=== PATIENT | male | born 1970 | race African-American/Black ===

== ENCOUNTER 2019-04-29 12:09 | Inpatient (IN) | payer MEDICAID ==
[~2019-04-29] VITALS: Ht 172.7 cm; Wt 73.9 kg
[2019-04-29] MEDS ORDERED: SODIUM CHLORIDE 0.9% 500 ML IV ONE (13:00)
[2019-04-29 13:11] LABS: BASOPHILS % 0.8 % (0.0-2.0); EOSINOPHILS % 1.2 % (0.0-5.0); HEMATOCRIT. 47.4 % (42.0-52.0); HEMOGLOBIN. 16.6 g/dL (14.0-18.0); LYMPHOCYTES % 26.3 % (20.0-50.0); MEAN CORPUSCULAR HEMOGLOBIN 31.4 pg (28.0-32.0); MEAN CORPUSCULAR VOLUME 89.8 fL (80.0-94.0); MEAN PLATELET VOLUME 7.9 fl (7.4-10.4); MONOCYTES % 11.5 % (2.0-8.0); NEUTROPHILS % 60.2 % (40.0-76.0); PLATELET 61 x1000/uL (130-400); RED BLOOD CELL COUNT 5.28 mill/uL (4.7-6.1); RED CELL DISTRIBUTION WIDTH 13.7 % (11.6-14.6)
[2019-04-29 13:22] LABS: CHLORIDE 96 mEq/L (98-107)
[2019-04-29] MEDS ORDERED: NITROGLYCERIN 0.4MG TABLET SL SL ONE (13:45)
[2019-04-29] MEDS ORDERED: FUROSEMIDE 40MG/4ML VIAL IVP ONE (13:45)
[2019-04-29] MEDS ORDERED: ASPIRIN 325MG TABLET PO ONE (13:45)
[2019-04-29] MEDS ORDERED: ENALAPRIL 2.5MG/2ML VIAL 2ML IV ONE (13:45)
[2019-04-29] MEDS ORDERED: LABETALOL HCL 200 MG in DEXT 5% WATER 60 ML IV PRN (13:45)
[2019-04-29] MEDS ORDERED: IPRATROPIUM/ALBUTEROL 0.5-3(2.5)MG/3ML NEB INH PRN (14:15)
[2019-04-29] MEDS ORDERED: DIPHENHYDRAMINE 50MG/ML VIAL IV PRN (14:15)
[2019-04-29] MEDS ORDERED: HYDROCODONE/ACETAMINOPHEN 5/325MG TABLET PO PRN (14:15)
[2019-04-29] MEDS ORDERED: MAGNESIUM/ALUMINUM HYDROXIDE/SIMETHICONE 30ML UDC PO PRN (14:15)
[2019-04-29] MEDS ORDERED: DOCUSATE SODIUM 100MG CAPSULE PO PRN (14:15)
[2019-04-29] MEDS ORDERED: MORPHINE SULFATE 2 MG/ML CPJ (NOT FOR IM USE) IV PRN (14:15)
[2019-04-29] MEDS ORDERED: GUAIFENESIN 200MG/10ML SUGAR FREE UDC PO PRN (14:15)
[2019-04-29] MEDS ORDERED: CLONIDINE 0.1MG TABLET PO PRN (14:30)
[2019-04-29] MEDS ORDERED: POTASSIUM CHLORIDE INJ 40 MEQ in DEXT 5% WATER 250 ML IV NR (14:30)
[2019-04-29] MEDS ORDERED: CLONIDINE 0.2MG TABLET PO ONE (14:30)
[2019-04-29] MEDS ORDERED: POTASSIUM CHLORIDE 20MEQ TABLET SR PO ONE (15:30)
[2019-04-29] MEDS: METOPROLOL TARTRATE 50MG TABLET PO SCH ×2 (15:34→23:03)
[2019-04-29] MEDS: DILTIAZEM HCL 90MG TABLET PO SCH ×2 (16:00→18:16)
[2019-04-29 18:00] VITALS: BP 144/110
[2019-04-29 18:01] VITALS: BP 144/110
[2019-04-29] MEDS ORDERED: SODIUM PHOS,M-BASIC-D-BASIC 15 MM in DEXT 5% WATER 245 ML IV SCH (20:00)
[2019-04-29] MEDS: HYDRALAZINE HCL 25MG TABLET PO SCH (21:31)
[2019-04-29 21:47] VITALS: BP 150/116
[2019-04-29 23:05] LABS: CREATINE KINASE MB FRACTION 2.5 ng/mL (0.5-3.6)
[2019-04-29 23:38] LABS: CLARITY URINE CLEAR (CLEAR); COLOR URINE YELLOW (YELLOW); KETONES URINE NEGATIVE (NEGATIVE); LEUKOCYTE ESTERASE URINE NEGATIVE (NEGATIVE); NITRITE URINE NEGATIVE (NEGATIVE); OCCULT BLOOD URINE 2+ (NEGATIVE); PH URINE 7.5 (4.5-8.0); PROTEIN URINE 3+ (NEGATIVE); SPECIFIC GRAVITY URINE 1.009 (1.005-1.030); UROBILINOGEN URINE 0.2 E.U./dL (0.2-1.0)
[2019-04-29 23:48] LABS: *AMPHETAMINES SCREEN URINE NEGATIVE (NEGATIVE); *BARBITURATES SCREEN URINE NEGATIVE (NEGATIVE)
[2019-04-29 23:49] LABS: *BENZODIAZEPINES SCREEN URINE NEGATIVE (NEGATIVE); *COCAINE SCREEN URINE NEGATIVE (NEGATIVE); CANNABINOID URINE SCREEN PRESUMTIVE POSITIVE (NEGATIVE); METHADONE URINE SCREEN NEGATIVE (NEGATIVE); OPIATES URINE SCREEN NEGATIVE (NEGATIVE); PHENCYCLIDINE URINE SCREEN NEGATIVE (NEGATIVE)
[2019-04-30] VITALS (8 sets, daily range): BP systolic 143–186; BP diastolic 108–136
[2019-04-30] MEDS: DILTIAZEM HCL 90MG TABLET PO SCH ×2 (00:43→05:29)
[2019-04-30] MEDS ORDERED: CLONIDINE 0.1MG TABLET PO PRN (02:30)
[2019-04-30] MEDS: HYDRALAZINE HCL 25MG TABLET PO SCH (05:29)
[2019-04-30 06:55] LABS: BASOPHILS % 0.4 % (0.0-2.0); EOSINOPHILS % 1.9 % (0.0-5.0); HEMATOCRIT. 42.6 % (42.0-52.0); HEMOGLOBIN. 14.9 g/dL (14.0-18.0); LYMPHOCYTES % 29.9 % (20.0-50.0); MEAN CORPUSCULAR HEMOGLOBIN 31.7 pg (28.0-32.0); MEAN CORPUSCULAR VOLUME 90.8 fL (80.0-94.0); MEAN PLATELET VOLUME 8.1 fl (7.4-10.4); MONOCYTES % 11.5 % (2.0-8.0); NEUTROPHILS % 56.3 % (40.0-76.0); PLATELET 53 x1000/uL (130-400); RED CELL DISTRIBUTION WIDTH 13.9 % (11.6-14.6)
[2019-04-30 08:01] LABS: CHLORIDE 96 mEq/L (98-107)
[2019-04-30 08:12] LABS: PHOSPHORUS 5.3 mg/dL (2.5-4.9)
[2019-04-30 08:13] LABS: CREATINE KINASE 249 IU/L (39-308); LDL CHOLESTEROL 100 mg/dL (5-100)
[2019-04-30 08:14] LABS: CREATINE KINASE MB FRACTION 2.2 ng/mL (0.5-3.6); HDL CHOLESTEROL 45 mg/dL (40-59)
[2019-04-30] MEDS: METOPROLOL TARTRATE 50MG TABLET PO SCH (10:53)
[2019-04-30] MEDS: DILTIAZEM HCL 120MG CAPSULE CD 24HR PO SCH ×2 (11:27→22:14)
[2019-04-30] MEDS: FUROSEMIDE 40MG TABLET PO SCH (11:27)
[2019-04-30] MEDS ORDERED: POTASSIUM CHLORIDE 20MEQ TABLET SR PO NR (15:00)
[2019-04-30 16:13] LABS: HEPATITIS B SURFACE ANTIGEN NEGATIVE
[2019-04-30 16:43] LABS: HEPATITIS A AB IGM NEGATIVE (NEGATIVE)
[2019-04-30] MEDS: ATORVASTATIN CALCIUM 20MG TABLET PO SCH (21:00)
[2019-04-30] MEDS: HYDRALAZINE HCL 50MG TABLET PO SCH (22:13)
[2019-04-30] MEDS: CARVEDILOL 12.5MG TABLET PO SCH (22:15)
[2019-05-01] VITALS: BP 126/92
[2019-05-01 04:00] VITALS: BP 131/95
[2019-05-01] MEDS: HYDRALAZINE HCL 50MG TABLET PO SCH (05:36)
[2019-05-01 06:47] LABS: BASOPHILS % 0.2 % (0.0-2.0); EOSINOPHILS % 0.8 % (0.0-5.0); HEMATOCRIT. 41.5 % (42.0-52.0); HEMOGLOBIN. 14.6 g/dL (14.0-18.0); LYMPHOCYTES % 21.3 % (20.0-50.0); MEAN CORPUSCULAR HEMOGLOBIN 31.8 pg (28.0-32.0); MEAN CORPUSCULAR VOLUME 90.3 fL (80.0-94.0); MEAN PLATELET VOLUME 8.9 fl (7.4-10.4); MONOCYTES % 7.4 % (2.0-8.0); NEUTROPHILS % 70.3 % (40.0-76.0); PLATELET 60 x1000/uL (130-400)
[2019-05-01 07:23] LABS: PHOSPHORUS 4.5 mg/dL (2.5-4.9)
[2019-05-01 08:00] VITALS: BP 149/100
[2019-05-01] MEDS: FUROSEMIDE 40MG TABLET PO SCH (09:01)
[2019-05-01] MEDS: DILTIAZEM HCL 120MG CAPSULE CD 24HR PO SCH ×2 (09:01→20:46)
[2019-05-01] MEDS: CARVEDILOL 12.5MG TABLET PO SCH ×2 (09:01→20:47)
[2019-05-01 12:00] VITALS: BP 136/103
[2019-05-01] MEDS ORDERED: ACET-2178 PO (15:50)
[2019-05-01 16:00] VITALS: BP 128/76
[2019-05-01 20:00] VITALS: BP 164/125
[2019-05-01] MEDS: HYDRALAZINE HCL 100MG TABLET PO SCH (20:46)
[2019-05-01] MEDS: ATORVASTATIN CALCIUM 20MG TABLET PO SCH (20:47)
[2019-05-02] VITALS: BP 116/85
[2019-05-02 04:00] VITALS: BP 132/95
[2019-05-02 04:09] LABS: HIV SCREEN 4G Non Reactive (Non Reactive)
[2019-05-02 08:00] VITALS: BP 136/99
[2019-05-02] MEDS: DILTIAZEM HCL 120MG CAPSULE CD 24HR PO SCH ×2 (08:19→21:24)
[2019-05-02] MEDS: CARVEDILOL 12.5MG TABLET PO SCH ×2 (08:19→21:24)
[2019-05-02] MEDS: FUROSEMIDE 40MG TABLET PO SCH (08:20)
[2019-05-02] MEDS: HYDRALAZINE HCL 100MG TABLET PO SCH ×2 (08:20→21:25)
[2019-05-02] MEDS: ONDANSETRON HCL 4MG/2ML INJ IV PRN (11:56)
[2019-05-02 12:00] VITALS: BP 113/74
[2019-05-02] MEDS ORDERED: ONDANSETRON HCL 4MG TABLET PO PRN (12:15)
[2019-05-02 16:00] VITALS: BP 151/99
[2019-05-02 16:04] LABS: BASOPHILS % 0.6 % (0.0-2.0); HEMATOCRIT. 41.6 % (42.0-52.0); HEMOGLOBIN. 14.5 g/dL (14.0-18.0); LYMPHOCYTES % 21.6 % (20.0-50.0); MEAN CORPUSCULAR HEMOGLOBIN 31.7 pg (28.0-32.0); MEAN CORPUSCULAR VOLUME 91.4 fL (80.0-94.0); MEAN PLATELET VOLUME 8.8 fl (7.4-10.4); MONOCYTES % 6.4 % (2.0-8.0); NEUTROPHILS % 70.4 % (40.0-76.0); PLATELET 97 x1000/uL (130-400); RED BLOOD CELL COUNT 4.56 mill/uL (4.7-6.1); RED CELL DISTRIBUTION WIDTH 13.9 % (11.6-14.6)
[2019-05-02 16:23] LABS: PHOSPHORUS 3.8 mg/dL (2.5-4.9)
[2019-05-02] MEDS: ACETAMINOPHEN 325MG TABLET PO PRN (16:30)
[2019-05-02] MEDS ORDERED: POTASSIUM CHLORIDE 20MEQ TABLET SR PO NR (17:30)
[2019-05-02 20:37] VITALS: BP 149/108
[2019-05-02] MEDS: ATORVASTATIN CALCIUM 20MG TABLET PO SCH (21:24)
[2019-05-03] VITALS: BP 118/79
[2019-05-03 04:00] VITALS: BP 140/97
[2019-05-03 06:10] LABS: PHOSPHORUS 4.3 mg/dL (2.5-4.9)
[2019-05-03 06:36] LABS: BASOPHILS % 0.4 % (0.0-2.0); EOSINOPHILS % 1.6 % (0.0-5.0); HEMATOCRIT. 39.4 % (42.0-52.0); LYMPHOCYTES % 26.5 % (20.0-50.0); MEAN CORPUSCULAR HEMOGLOBIN 32.2 pg (28.0-32.0); MEAN CORPUSCULAR VOLUME 90.3 fL (80.0-94.0); MEAN PLATELET VOLUME 8.5 fl (7.4-10.4); MONOCYTES % 10.4 % (2.0-8.0); NEUTROPHILS % 61.1 % (40.0-76.0); PLATELET 87 x1000/uL (130-400); RED BLOOD CELL COUNT 4.36 mill/uL (4.7-6.1); RED CELL DISTRIBUTION WIDTH 14.2 % (11.6-14.6)
[2019-05-03 08:00] VITALS: BP 152/112
[2019-05-03] MEDS: CARVEDILOL 12.5MG TABLET PO SCH (09:20)
[2019-05-03] MEDS: DILTIAZEM HCL 120MG CAPSULE CD 24HR PO SCH (09:21)
[2019-05-03] MEDS: HYDRALAZINE HCL 100MG TABLET PO SCH (09:21)
[2019-05-03] MEDS: FUROSEMIDE 40MG TABLET PO SCH (09:21)
[2019-05-03] MEDS ORDERED: CLONIDINE 0.1MG TABLET PO SCH (11:00)
[2019-05-03 11:09] VITALS: BP 152/112
[2019-05-03] MEDS: ACETAMINOPHEN 325MG TABLET PO PRN (11:32)
[2019-05-03] MEDS: ONDANSETRON HCL 4MG/2ML INJ IV PRN (11:32)
== END 2019-05-03 14:31 | disposition home or self-care (01) | DRG 194 ==
LOC: ER 12:09 → 6WST 14:13 → ENRESERV 16:04
PROVIDERS: ADMIT Internal Medicine; ATTEND Internal Medicine
DX: I13.0 Hypertensive heart and chronic kidney disease with heart failure and stage 1 through stage 4 chronic kidney disease, or unspecified chronic kidney disease (principal); D69.6 Thrombocytopenia, unspecified; N17.9 Acute kidney failure, unspecified; E87.1 Hypo-osmolality and hyponatremia; E83.39 Other disorders of phosphorus metabolism; N18.3 Chronic kidney disease, stage 3 (moderate); I42.9 Cardiomyopathy, unspecified; I50.9 Heart failure, unspecified; I16.0 Hypertensive urgency; E87.6 Hypokalemia; E78.5 Hyperlipidemia, unspecified; F12.90 Cannabis use, unspecified, uncomplicated; H53.8 Other visual disturbances; J06.9 Acute upper respiratory infection, unspecified; Z91.19 Patient's noncompliance with other medical treatment and regimen; Z86.73 Personal history of transient ischemic attack (TIA), and cerebral infarction without residual deficits; Z82.3 Family history of stroke; Z82.49 Family history of ischemic heart disease and other diseases of the circulatory system; Z87.891 Personal history of nicotine dependence
CPT/HCPCS: 36415; 71045; 76770; 80048; 80061; 80305; 82550; 82553; 83735; 83880; 84100; 84443; 84484; 86705; 86709; 86803; 87340; 87389; 93005; 93306; 93970; 96374; 96375; 99285; J1940; J2405; J3480; J3490; J7040; J7060; Q0162

== ENCOUNTER 2021-10-24 01:29 | Inpatient (IN) | payer MEDICAID, OTHER ==
[~2021-10-24] VITALS: Ht 172.7 cm; Wt 60.8 kg
[~2021-10-24 01:29] MED LIST: TOPUD PO
[2021-10-24] MEDS ORDERED: DIPHENHYDRAMINE 50MG/ML VIAL IV ONE (01:45)
[2021-10-24] MEDS ORDERED: FAMOTIDINE 20MG/2ML VIAL IV ONE (01:45)
[2021-10-24] MEDS ORDERED: DEXAMETHASONE 10 MG/ML VIAL IV ONE (01:45)
[2021-10-24 01:59] LABS: BASOPHILS % 1.4 % (0.0-2.0); HEMATOCRIT. 52.5 % (42.0-52.0); HEMOGLOBIN. 18.1 g/dL (14.0-18.0); MEAN CORPUSCULAR HEMOGLOBIN 31.4 pg (28.0-32.0); MEAN CORPUSCULAR VOLUME 90.9 fL (80.0-94.0); MEAN PLATELET VOLUME 8.3 fl (7.4-10.4); MONOCYTES % 9.6 % (2.0-8.0); PLATELET 185 x1000/uL (130-400); RED BLOOD CELL COUNT 5.77 mill/uL (4.7-6.1); RED CELL DISTRIBUTION WIDTH 14.1 % (11.6-14.6)
[2021-10-24 02:06] LABS: CHLORIDE 104 mEq/L (98-107)
[2021-10-24] MEDS ORDERED: LABETALOL 5MG/ML SYR 20 MG/4 ML SYRINGE IV ONE (02:15)
[2021-10-24] MEDS ORDERED: ONDANSETRON HCL 4MG/2ML INJ IV ONE (02:30)
[2021-10-24 03:50] LABS: CLARITY URINE CLEAR (CLEAR); COLOR URINE YELLOW (YELLOW); KETONES URINE NEGATIVE (NEGATIVE); LEUKOCYTE ESTERASE URINE TRACE (NEGATIVE); NITRITE URINE NEGATIVE (NEGATIVE); OCCULT BLOOD URINE NEGATIVE (NEGATIVE); PROTEIN URINE 3+ (NEGATIVE); SPECIFIC GRAVITY URINE 1.015 (1.005-1.030); UROBILINOGEN URINE 0.2 E.U./dL (0.2-1.0)
[2021-10-24] MEDS ORDERED: LABETALOL 5MG/ML SYR 20 MG/4 ML SYRINGE IV SCH (04:15)
[2021-10-24] MEDS ORDERED: LORAZEPAM 0.5MG TABLET PO PRN (08:00)
[2021-10-24] MEDS ORDERED: IPRATROPIUM/ALBUTEROL 0.5-3(2.5)MG/3ML NEB HHN PRN (08:00)
[2021-10-24] MEDS ORDERED: ONDANSETRON HCL 4MG/2ML INJ IV PRN (08:00)
[2021-10-24] MEDS ORDERED: DOCUSATE SODIUM 100MG CAPSULE PO PRN (08:00)
[2021-10-24] MEDS ORDERED: HYDROCODONE/ACETAMINOPHEN 5/325MG TABLET PO PRN (08:00)
[2021-10-24] MEDS ORDERED: ACETAMINOPHEN 325MG TABLET PO PRN ×2 (08:00)
[2021-10-24] MEDS: CLONIDINE 0.1MG TABLET PO PRN ×2 (08:14→19:52)
[2021-10-24] MEDS ORDERED: NALOXONE HCL 0.4MG/ML VIAL IV PRN (08:15)
[2021-10-24] MEDS: NIFEDIPINE XL 30MG TAB PO SCH ×3 (08:22→21:45)
[2021-10-24] MEDS: PREDNISONE 20MG TABLET PO SCH ×2 (08:35→17:27)
[2021-10-24] MEDS: DIPHENHYDRAMINE 25MG CAPSULE PO SCH ×2 (08:43→17:00)
[2021-10-24] MEDS: ENOXAPARIN 30MG/0.3ML SYR SUBCUT SCH (08:45)
[2021-10-24 10:21] LABS: LDL CHOLESTEROL 80 mg/dL (5-100)
[2021-10-24 10:22] LABS: HDL CHOLESTEROL 57 mg/dL (40-59)
[2021-10-24] MEDS ORDERED: LOSARTAN POTASSIUM 25 MG TABLET PO SCH (10:45)
[2021-10-24] MEDS ORDERED: CARVEDILOL 6.25 MG TABLET PO SCH (10:45)
[2021-10-24] MEDS ORDERED: NIFEDIPINE XL 30MG TAB PO SCH ×2 (10:45→21:00)
[2021-10-24] MEDS ORDERED: FAMOTIDINE 20MG/2ML VIAL IV SCH (21:00)
[2021-10-24] MEDS: CARVEDILOL 12.5MG TABLET PO SCH (21:44)
[2021-10-24] MEDS: LOSARTAN POTASSIUM 25 MG TABLET PO SCH (21:44)
[2021-10-24 22:14] VITALS: BP 153/110
[2021-10-24 23:26] VITALS: BP 175/75
[2021-10-25] VITALS: BP 165/108
[2021-10-25 00:03] LABS: *AMPHETAMINES SCREEN URINE NEGATIVE (NEGATIVE); *BARBITURATES SCREEN URINE NEGATIVE (NEGATIVE); *BENZODIAZEPINES SCREEN URINE NEGATIVE (NEGATIVE); *COCAINE SCREEN URINE NEGATIVE (NEGATIVE); METHADONE URINE SCREEN NEGATIVE (NEGATIVE); OPIATES URINE SCREEN NEGATIVE (NEGATIVE)
[2021-10-25 00:04] LABS: CANNABINOID URINE SCREEN PRESUMTIVE POSITIVE (NEGATIVE); PHENCYCLIDINE URINE SCREEN NEGATIVE (NEGATIVE)
[2021-10-25 04:00] VITALS: BP 149/96
[2021-10-25] MEDS ORDERED: PNEUMOCOCCAL 23-VAL P-SAC VAC 0.5 ML IM ONE (06:00)
[2021-10-25] MEDS ORDERED: INFLUENZA VACCINE 05/PF 0.5 ML SYRINGE IM ONE (06:00)
[2021-10-25 07:00] LABS: HEMATOCRIT. 45.5 % (42.0-52.0); HEMOGLOBIN. 15.6 g/dL (14.0-18.0); LYMPHOCYTES % 9.3 % (20.0-50.0); MEAN CORPUSCULAR HEMOGLOBIN 31.2 pg (28.0-32.0); MEAN PLATELET VOLUME 8.4 fl (7.4-10.4); MONOCYTES % 5.1 % (2.0-8.0); NEUTROPHILS % 85.6 % (40.0-76.0); PLATELET 142 x1000/uL (130-400); RED CELL DISTRIBUTION WIDTH 14.3 % (11.6-14.6)
[2021-10-25 07:04] LABS: PHOSPHORUS 3.2 mg/dL (2.5-4.9)
[2021-10-25 08:00] VITALS: BP 159/101
[2021-10-25] MEDS: LOSARTAN POTASSIUM 25 MG TABLET PO SCH (08:19)
[2021-10-25] MEDS: PREDNISONE 20MG TABLET PO SCH ×2 (08:20→17:19)
[2021-10-25] MEDS: DIPHENHYDRAMINE 25MG CAPSULE PO SCH ×2 (08:20→17:19)
[2021-10-25] MEDS: ENOXAPARIN 30MG/0.3ML SYR SUBCUT SCH (08:21)
[2021-10-25] MEDS: NIFEDIPINE XL 30MG TAB PO SCH ×2 (08:22→20:08)
[2021-10-25] MEDS: CARVEDILOL 12.5MG TABLET PO SCH ×2 (08:22→20:09)
[2021-10-25 12:00] VITALS: BP 155/100
[2021-10-25 16:00] VITALS: BP 149/88
[2021-10-25 20:00] VITALS: BP 152/101
[2021-10-25] MEDS: LOSARTAN POTASSIUM 50 MG TABLET PO SCH (20:07)
[2021-10-25] MEDS ORDERED: LOSA50TA3 PO (20:41)
[2021-10-25] MEDS ORDERED: NIFE-33 PO (20:41)
[2021-10-25] MEDS ORDERED: COR12 PO (20:41)
[2021-10-25] MEDS ORDERED: MED4 MT (20:41)
[2021-10-25] MEDS ORDERED: FAMOTIDINE 20MG TABLET PO SCH (21:00)
[2021-10-25] MEDS: CLONIDINE 0.1MG TABLET PO PRN (23:45)
[2021-10-26] VITALS: BP 156/100
[2021-10-26 04:00] VITALS: BP 133/94
[2021-10-26] MEDS: CLONIDINE 0.1MG TABLET PO PRN (05:55)
[2021-10-26 06:09] VITALS: BP 143/93
[2021-10-26 06:47] LABS: BASOPHILS % 0.1 % (0.0-2.0); HEMATOCRIT. 46.3 % (42.0-52.0); HEMOGLOBIN. 15.6 g/dL (14.0-18.0); LYMPHOCYTES % 9.4 % (20.0-50.0); MEAN CORPUSCULAR HEMOGLOBIN 30.8 pg (28.0-32.0); MEAN CORPUSCULAR VOLUME 91.4 fL (80.0-94.0); MEAN PLATELET VOLUME 8.6 fl (7.4-10.4); MONOCYTES % 5.4 % (2.0-8.0); NEUTROPHILS % 85.1 % (40.0-76.0); PLATELET 142 x1000/uL (130-400); RED BLOOD CELL COUNT 5.06 mill/uL (4.7-6.1); RED CELL DISTRIBUTION WIDTH 14.2 % (11.6-14.6)
[2021-10-26 08:00] VITALS: BP 140/102
[2021-10-26] MEDS: NIFEDIPINE XL 30MG TAB PO SCH (08:29)
[2021-10-26] MEDS: LOSARTAN POTASSIUM 50 MG TABLET PO SCH (08:29)
[2021-10-26] MEDS: CARVEDILOL 12.5MG TABLET PO SCH (08:30)
[2021-10-26] MEDS: DIPHENHYDRAMINE 25MG CAPSULE PO SCH (08:30)
[2021-10-26] MEDS: PREDNISONE 20MG TABLET PO SCH (08:30)
[2021-10-26] MEDS: ENOXAPARIN 30MG/0.3ML SYR SUBCUT SCH (08:31)
[2021-10-26 08:39] LABS: PHOSPHORUS 3.7 mg/dL (2.5-4.9)
== END 2021-10-26 08:30 | disposition home or self-care (01) | DRG 811 ==
LOC: ER 01:29 → MICUSO 04:51 → 5EST 20:42
PROVIDERS: ADMIT Internal Medicine; ATTEND Internal Medicine
DX: T78.3XXA Angioneurotic edema, initial encounter (principal); I27.20 Pulmonary hypertension, unspecified; I42.9 Cardiomyopathy, unspecified; I50.9 Heart failure, unspecified; I13.0 Hypertensive heart and chronic kidney disease with heart failure and stage 1 through stage 4 chronic kidney disease, or unspecified chronic kidney disease; T78.2XXA Anaphylactic shock, unspecified, initial encounter; I16.1 Hypertensive emergency; N18.4 Chronic kidney disease, stage 4 (severe); E78.5 Hyperlipidemia, unspecified; L29.9 Pruritus, unspecified; T50.905A Adverse effect of unspecified drugs, medicaments and biological substances, initial encounter; T78.1XXA Other adverse food reactions, not elsewhere classified, initial encounter; Z20.822 Contact with and (suspected) exposure to COVID-19; T46.5X6A Underdosing of other antihypertensive drugs, initial encounter; Y92.89 Other specified places as the place of occurrence of the external cause; Z82.49 Family history of ischemic heart disease and other diseases of the circulatory system; Z91.19 Patient's noncompliance with other medical treatment and regimen; Z91.018 Allergy to other foods; Z91.010 Allergy to peanuts
CPT/HCPCS: 36415; 71045; 76770; 80048; 80053; 80061; 80305; 81003; 83036; 83735; 84100; 84443; 84484; 85025; 86850; 86900; 87426; 90686; 90732; 93005; 93306; 99291; J1100; J1200; J1650; J2405; J3490; J7512; Q0163